=== PATIENT | female | born 1980 | race Caucasian/White ===

== ENCOUNTER 2019-10-14 22:23 | Emergency (ER) | payer OTHER ==
[2019-10-14 22:43] VITALS: BP 172/112; PULSE 104
--- NOTE | 2019-10-14 23:30 | EDM.PDOC ---
ED HPI GENERAL MEDICAL PROBLEM - General Chief Complaint: Abdominal Pain Stated Complaint: LOWER ABDOMINAL AND BACK PAIN Time Seen by Provider: 10/14/19 22:58 Source of Information: Reports: Patient History Limitations: Reports: No Limitations - History of Present Illness INITIAL COMMENTS - FREE TEXT/NARRATIVE: Ms. Palma is a pleasant 39-year-old woman with a past medical history significant for obesity and prediabetes, who now presents to the ED stating that she developed urinary urgency with dark, malodorous urine yesterday. No dysuria. She then developed lower central abdominal pain, crampy in character, radiating through to her lower back, this morning. She vomited once just prior to coming to the ED. She states that she feels constipated, although had a normal bowel movement today. No recent fever. No prior similar symptoms. The patient did not take any [id number] or home remedies prior to coming to the ED. Here in the ED, the patient's initial BP is found to be elevated at 172/112, with tachycardia of 104 bpm. She is afebrile, saturating 97% on room air. Other than the above symptoms, the patient denies recent fever, chills, sore throat, ear pain, nasal or sinus congestion, cough, dyspnea, chest pain, palpitations, nausea, constipation, diarrhea, recent weight gain or weight loss, recent bloody bowel movements or black bowel movements, recent joint aches, headaches, or rashes. The patient states that her LMP was about 2 weeks ago, lasting 1 week. She states that she is not sexually active. The patient last ate around 20:00 tonight. The patient's PCP is Dr. Robert Wilson. Her Biometrics Head is Dr. Ortega Abdul. Her Swimming Teacher is Dr. Trisha Zelaya. Her ENT is Dr. Fletcher Costa. Lower Abdominal Pain Score (Numeric/FACES): 8 - Related Data Allergies Allergy/AdvReac Type Severity Reaction Status Date / Time Yeast Allergy Respiratory Verified 10/14/19 22:43 Distress Home Meds: Home Meds Multivitamin [One Daily] 1 tab PO DAILY 11/13/15 [History] Dupilumab [Dupixent] 1 injection SQ ASDIRECTED 10/14/19 [History] Fluticasone Propionate [Flonase Allergy Relief] 1 applic NASBOTH BID 10/14/19 [History] Furosemide [Lasix] 20 mg PO DAILY 10/14/19 [History] Losartan Potassium 25 mg PO DAILY 10/14/19 [History] levoFLOXacin [Levaquin] 1 tab PO QPM #6 tab 10/15/19 [Rx] Past Medical History HEENT History: Reports: Other (See Below) (Nasal polyps) Cardiovascular History: Reports: Hypertension Respiratory History: Reports: Sleep Apnea (nightly CPAP 12) Musculoskeletal History: Reports: Fracture (right wrist) Endocrine/Metabolic History: Reports: Obesity/BMI 30+, Other (See Below) (Prediabetes) - Past Surgical History HEENT Surgical History: Reports: Adenoidectomy, Myringotomy w Tube(s) (bilateral), Tonsillectomy Female Surgical History: Reports: Section (x 1) Musculoskeletal Surgical History: Reports: ORIF (right wrist) Social & Family History - Tobacco Use Smoking Status *Q: Never Smoker - Caffeine Use Caffeine Use: Reports: Soda - Alcohol Use Alcohol Use History: Yes Alcohol Use Frequency: Socially - Recreational Drug Use Recreational Drug Use: No - Living Situation & Occupation Living situation: Reports: Single, with Family (Daughter) 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 ED EXAM, RENAL/ - Physical Exam Exam: See Below Exam Limited By: No Limitations General Appearance: Alert, WD/WN, No Apparent Distress Eye Exam: Bilateral Eye: EOMI, Normal Inspection Ears: Normal External Exam, Hearing Grossly Normal Nose: Normal Inspection Throat/Mouth: Normal Inspection, Normal Lips, Normal Voice, No Airway Compromise Head: Atraumatic, Normocephalic Neck: Normal Inspection, Full Range of Motion Respiratory/Chest: No Respiratory Distress, Lungs Clear, Normal Breath Sounds, No Accessory Muscle Use Cardiovascular: Normal Peripheral Pulses, Regular Rate, Rhythm, No Gallop, No JVD, No Murmur, No Rub GI/Abdominal: Normal Bowel Sounds, Soft, No Organomegaly, No Distention, No Abnormal Bruit, No Mass, Tender (Suprapubic region only, with very mild tenderness to the left lower quadrant and left lower quadrant, but nontender elsewhere) (Female) Exam: Deferred Rectal (Female) Exam: Deferred Back Exam: Normal Inspection, Full Range of Motion. No: CVA Tenderness (L), CVA Tenderness (R) Extremities: Normal Inspection, Normal Range of Motion, No Pedal Edema, Normal Capillary Refill Neurological: Alert, Oriented, Normal Cognition, No Motor/Sensory Deficits Psychiatric: Normal Affect Skin Exam: Warm, Dry, Intact, Normal Color, No Rash Course - Vital Signs Last Recorded V/S: Last Vital Signs Temp 37.1 C 10/14/19 22:37 Pulse 104 H 10/14/19 22:37 Resp 18 10/14/19 22:37 BP 172/112 H 10/14/19 22:37 Pulse Ox 95 10/14/19 22:37 - Orders/Labs/Meds Labs: Laboratory Tests 10/14/19 10/14/19 Range/Units 23:05 23:05 Urine Color Yellow (Yellow) Urine Appearance Cloudy H (Clear) Urine pH 6.5 (5.0-8.0) Ur Specific [place] > or = 1.030 (1.005-1.030) Urine Protein 3+ H (Negative) Urine Glucose (UA) Negative (Negative) Urine Ketones 1+ H (Negative) Urine Occult Blood 3+ H (Negative) Urine Nitrite Positive H (Negative) Urine Bilirubin Negative (Negative) Urine Urobilinogen 0.2 (0.2-1.0) Ur Leukocyte Esterase 1+ H (Negative) Urine RBC 40-50 H (0-5) /hpf Urine WBC 20-30 H (0-5) /hpf Urine WBC Clumps Moderate (NOT SEEN) /hpf Ur Squamous Epith Cells 5-10 H (0-5) /hpf Urine Bacteria Many H (FEW) /hpf Urine Mucus Few (FEW) /hpf Urine HCG, Qual Negative (NEGATIVE) - Re-Assessments/Exams Free Text/Narrative Re-Assessment/Exam: 10/14/19 23:24 As above, the patient developed urinary urgency with a dark, malodorous urine yesterday, then lower midline abdominal pain radiating to her lower back today, with one episode of vomiting, but no recent fever. On examination, she has suprapubic tenderness and bilateral CVA tenderness. Her presentation is most concerning for a UTI or even pyelonephritis, although a ureterolith, appendicitis, diverticulitis, an ovarian cyst, mesenteric adenitis, and epiploic appendagitis are all on the differential. A urine sample was collected at triage. Before ordering additional studies, I will wait to see the results of her urinalysis. If she appears to have a UTI, we can treat without additional tests needing to be performed, however, if her urinalysis is not consistent with a UTI, then I will order blood work and a CT scan. 10/14/19 23:54 The patient's urinalysis is remarkable for cloudy appearance, 3+ occult blood with 40-50 RBCs, 1+ leukocyte esterase with 20-30 WBCs and moderate clumps, nitr ite positive with many bacteria, and 5-10 squamous epithelial cells. Her urine test is negative. Based on the above, it appears that the patient has a UTI, and because of her bilateral CVA tenderness and vomiting, I believe it would be prudent to treat for pyelonephritis. I will therefore start the patient on oral Levaquin and prescribe a 7-day course. A urine culture will be ordered. 10/15/19 00:01 Test results and my plan of care discussed with the patient. I would like her to follow-up with her PCPs office on Monday morning to have them check on the urine culture results, to make sure that whatever organism grows in her urine is susceptible to Levaquin. Departure - Departure Time of Disposition: 00:01 Disposition: Home, Self-Care 01 Condition: Good Clinical Impression: Pyelonephritis - Discharge Information *PRESCRIPTION DRUG MONITORING PROGRAM REVIEWED*: Not Applicable *COPY OF PRESCRIPTION DRUG MONITORING REPORT IN PATIENT MARQUES: Not Applicable Referrals: Robert Wilson MD [Primary Care Provider] - Ortega Abdul MD [Physician] - Trisha Zelaya MD [Ordering Only Provider] - Fletcher Costa MD [Ordering Only Provider] - Forms: ED Department Discharge Additional Instructions: You were seen in the emergency room after developing urinary urgency with dark, malodorous urine yesterday, then lower abdominal pain radiating through to your back this morning, then vomiting this evening. Work-up in the ER included a urinalysis and a urine test. Your urinalysis is consistent with a urinary tract infection. A sample of your urine has been sent for culture. Your urine test returned negative. Based on your history, physical exam, and urine test results, you are most likely suffering from pyelonephritis = a urinary tract infection that has gone to your kidneys. You have been started on the antibiotic Levaquin, and a prescription for Levaquin has been sent to the [facility], located just south and across the [address] from [facility]. Take 1 tablet of Levaquin every evening, starting Monday evening, 10/15/2019, as prescribed. Stay adequately hydrated. It does not really matter what type of fluid you drink. We recommend that you contact the office of your PCP, Dr. Wilson, on Monday morning, 10/18/2019, to have them check on the urine culture results, to make sure that you are on the correct antibiotic. If any other problems, including worsening of your symptoms, please do not hesitate to return to the ER. Sepsis Event Note (ED) - Evaluation Sepsis Screening Result: No Definite Risk - Focused Exam Vital Signs: Vital Signs Temp Pulse Resp BP Pulse Ox 10/14/19 22:37 37.1 C 104 H 18 172/112 H 95
[2019-10-14] MEDS ORDERED: Levofloxacin 750 MG Tab PO STA (23:56)
== END 2019-10-15 00:16 | disposition home or self-care (01) ==
LOC: JD.ED 22:23
DX: N12 Tubulo-interstitial nephritis, not specified as acute or chronic (principal); E66.9 Obesity, unspecified; I10 Essential (primary) hypertension; Z91.09 Other allergy status, other than to drugs and biological substances; Z79.899 Other long term (current) drug therapy
CPT/HCPCS: 81001; 81025; 87086; 87088; 87184; 87186; 99284; A9270; 99282

== ENCOUNTER 2020-07-30 08:36 | Emergency (ER) | payer BC, OTHER ==
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
[2020-07-30] MEDS ORDERED: Albuterol/Ipratropium 3.0-0.5 MG/3 ML Neb Soln NEB PRN (09:19)
[2020-07-30 10:17] VITALS: BP 180/96; PULSE 92
--- NOTE | 2020-07-30 10:51 | CR ---
Chest: Portable view of the chest was obtained. Comparison: No prior chest imaging is available. Heart size and mediastinum are normal. Lungs are clear with no acute parenchymal change. Bony structures show nothing acute. Impression: 1. Nothing acute is seen on portable chest x-ray. Diagnostic code #1
== END 2020-07-30 10:15 | disposition home or self-care (01) ==
LOC: JD.ED 08:36
DX: J70.5 Respiratory conditions due to smoke inhalation (principal); I10 Essential (primary) hypertension; E66.9 Obesity, unspecified; Z68.42 Body mass index [BMI] 45.0-49.9, adult; Z91.048 Other nonmedicinal substance allergy status
CPT/HCPCS: 71045; 71045-26; 99283; 99283-25; J7620-GY

== ENCOUNTER 2021-10-13 10:44 | Emergency (ER) | payer BC ==
[2021-10-12 07:37] LABS: ESTIMATED GFR 112 mL/min (>60)
[2021-10-13] MEDS ORDERED: Sodium Chloride 0.9% 10 ML Syringe FLUSH PRN (11:39)
[2021-10-13] MEDS ORDERED: methylPREDNISolone Sodium Succinate 125 MG/2 ML SDV IVPUSH ONE (14:16)
[2021-10-13] MEDS ORDERED: Sodium Chloride 0.9% 250 ML IV SCH (14:30)
[2021-10-13 18:48] VITALS: BP 158/79; PULSE 80
== END 2021-10-13 20:03 ==
LOC: JD.ED 10:44
DX: D69.6 Thrombocytopenia, unspecified (principal); E80.6 Other disorders of bilirubin metabolism; D72.818 Other decreased white blood cell count; I10 Essential (primary) hypertension; E66.9 Obesity, unspecified; Z86.16 Personal history of COVID-19; Z79.899 Other long term (current) drug therapy; Z20.822 Contact with and (suspected) exposure to COVID-19; Z68.41 Body mass index [BMI] 40.0-44.9, adult
CPT/HCPCS: 36415; 36430; 80053; 83615; 85025; 86850; 86870; 86900; 86901; 86922; 87635; 96361; 96374; 99285; J2930; J3490; J7050; P9016; 99284; U0002

== ENCOUNTER 2022-03-23 07:04 | Day surgery (SDC) | payer BC ==
[2022-03-23] MEDS ORDERED: Sodium Chloride 0.9% 10 ML Syringe FLUSH PRN (07:05)
[2022-03-23] MEDS ORDERED: Lidocaine 1%/Sod Bicarbonate in NS 8.4% 1 ML Syringe IDERM PRN (07:05)
[2022-03-23] MEDS ORDERED: Lactated Ringers 1,000 ML IV SCH (07:15)
[2022-03-23] MEDS ORDERED: Lidocaine 1% 6 ML ONE (07:58)
[2022-03-23] MEDS ORDERED: Propofol 200 MG/20 ML SDV ONE (07:58)
[2022-03-23] MEDS ORDERED: fentaNYL 100 MCG/2 ML SDV ONE (07:58)
[2022-03-23] MEDS ORDERED: Lidocaine 2% Jelly 5 ML Tube ONE (08:00)
[2022-03-23] MEDS ORDERED: Sodium Chloride 0.9% 10 ML Syringe FLUSH SCH (09:00)
[2022-03-23 09:41] VITALS: BP 144/64; PULSE 76
== END 2022-03-23 09:43 | disposition home or self-care (01) ==
LOC: JD.SDS 07:04
PROVIDERS: ATTEND Surgery
DX: K31.89 Other diseases of stomach and duodenum (principal); K29.70 Gastritis, unspecified, without bleeding; K29.80 Duodenitis without bleeding; K31.7 Polyp of stomach and duodenum; K44.9 Diaphragmatic hernia without obstruction or gangrene; G47.30 Sleep apnea, unspecified; M19.90 Unspecified osteoarthritis, unspecified site; I10 Essential (primary) hypertension; D58.9 Hereditary hemolytic anemia, unspecified; M06.9 Rheumatoid arthritis, unspecified; J45.909 Unspecified asthma, uncomplicated; R09.02 Hypoxemia; E66.9 Obesity, unspecified; F32.A Depression, unspecified; Z90.49 Acquired absence of other specified parts of digestive tract; Z98.890 Other specified postprocedural states; Z79.899 Other long term (current) drug therapy; Z91.018 Allergy to other foods; Z86.16 Personal history of COVID-19
CPT/HCPCS: 36415; 43239; 81025; 85025; J2704; J3010; J7120; 00731

== ENCOUNTER 2024-10-05 19:13 | Emergency (ER) | payer BC ==
[2024-10-05] MEDS ORDERED: Naloxone 0.4 MG/ML SDV IVPUSH PRN (19:42)
[2024-10-05] MEDS: HYDROmorphone 1 MG/ML Syringe IM ONE (19:49)
[2024-10-05 20:45] VITALS: BP 132/85; PULSE 72
== END 2024-10-05 20:40 | disposition home or self-care (01) ==
LOC: JD.ED 19:13
DX: S52.125A Nondisplaced fracture of head of left radius, initial encounter for closed fracture (principal); E66.9 Obesity, unspecified; Z88.8 Allergy status to other drugs, medicaments and biological substances; Z91.09 Other allergy status, other than to drugs and biological substances; Z79.899 Other long term (current) drug therapy; Z68.42 Body mass index [BMI] 45.0-49.9, adult; W01.0XXA Fall on same level from slipping, tripping and stumbling without subsequent striking against object, initial encounter
CPT/HCPCS: 73080; 73110; 96372; 99283; J1171